=== PATIENT | male | born 1990 | race African-American/Black ===

== ENCOUNTER 2019-09-25 02:20 | Emergency (ER) | payer SELFPAY ==
[~2019-09-25] VITALS: Ht 175.3 cm; Wt 94.3 kg
[2019-09-25 02:36] VITALS: BP 168/109
[2019-09-25] MEDS ORDERED: SULF1TAB24 PO (02:44)
--- NOTE | 2019-09-25 02:44 | PHYS DOC ---
Adult General Chief Complaint Chief Complaint: SKIN PROBLEM HPI HPI 28 yo male presents to the ER with complaints of index finger pain. Patient states he hit his index finger about a week ago and has had increased pain appreciated. Patient has fluctuance appreciated to index finger, there is some bruising as well. Patient denies fever, nausea, vomiting, chest pain or SOB. All other ROS negative unless documented in HPI Review of Systems Review of Systems See Above Physical Exam Physical Exam See Above Constitutional: Well developed, well nourished, no acute distress, non-toxic appearance. [] Cardiovascular:Heart rate regular rhythm, no murmur [] Skin: Warm, dry, no erythema, no rash. [] Extremities: No tenderness, no edema. TTP at PIP and on the side of left index finger - hematoma vs paranychia [] Neurologic: Alert and oriented X 3, no focal deficits noted. [] Psychologic: Affect normal, judgement normal, mood normal. [] EKG EKG [] Radiology/Procedures Radiology/Procedures [] Course & Med Decision Making Course & Med Decision Making Pertinent Labs and Imaging studies reviewed. (See chart for details) []28 yo male presents to the ER with complaints of index finger pain. Patient states he hit his index finger about a week ago and has had increased pain appreciated. Patient has fluctuance appreciated to index finger, there is some bruising as well. Patient denies fever, nausea, vomiting, chest pain or SOB. Alcohol pad used to clean area with 20guage inserted to express content however only blood expressed Given location of the swelling will treat for paranychia Tramadol/Bactrim provided in the ER Rx provided upon discharge for treatment of infection Joanne Disclaimer Joanne Disclaimer This electronic medical record was generated, in whole or in part, using a voice recognition dictation system. Departure Departure Impression: Primary Impression: Acute paronychia of finger Additional Impression: Hematoma Disposition: 01 HOME, SELF-CARE Condition: IMPROVED Referrals: NO PCP (PCP) Patient Instructions: Hematoma, [id number], Paronychia, [id number] Additional Instructions: Recommend follow up with PCP 3 - 5 days Return to the ER with worsening symptoms, intractable pain, fever, altered mental status Tylenol/Motrin as needed for pain Take antibiotics as prescribed Tramadol/Bactrim provided in the ER Scripts Sulfamethoxazole/Trimethoprim (BACTRIM DS TABLET) 1 Each Tablet 1 TAB PO BID for infection, #14 TAB Prov: HELEN ROONEY MD 09/25/19 Problem Qualifiers Primary Impression: Acute paronychia of finger Laterality: left Qualified Codes: L03.012 - Cellulitis of left finger HELEN ROONEY MD Sep 25, 2019 02:44
[2019-09-25] MEDS ORDERED: SMZ/TMP 800/160MG TABLET. PO ONE (03:00)
[2019-09-25] MEDS ORDERED: traMADol 50 MG TABLET PO ONE (03:00)
== END 2019-09-25 02:46 | disposition home or self-care (01) ==
LOC: ER 02:20
DX: S60.022A Contusion of left index finger without damage to nail, initial encounter (principal); L03.012 Cellulitis of left finger; X58.XXXA Exposure to other specified factors, initial encounter; Y93.89 Activity, other specified; Y92.89 Other specified places as the place of occurrence of the external cause; Y99.8 Other external cause status
CPT/HCPCS: 10060; 11740; 99283